=== PATIENT | male | born 2000 | race Caucasian/White ===

== ENCOUNTER 2019-05-13 06:54 | Emergency (ER) | payer OTHER ==
[~2019-05-13] VITALS: Ht 182.9 cm; Wt 70.9 kg
--- NOTE | 2019-05-13 08:56 | REP ---
SCROTAL ULTRASOUND: Real-time sonographic evaluation of the scrotum and contents are performed. Testicles are normal in size and echotexture, right testicle measuring 4.5 x 2.5 x 3.4 cm and left testicle 5.2 x 2.3 x 3.3 cm. There is no testicular mass or torsion. Blood flow is seen in each testicle with duplex Doppler evaluation. 6 mm cyst is seen in the left epididymis. There is a small left hydrocele. IMPRESSION: No evidence of testicular mass or torsion bilaterally. Electronically Signed by Johnny Peng MD 05/13/2019 12:34 P
[2019-05-13 08:59] LABS: CHLAMYDIA DNA AMPLIFICATION NEGATIVE (NEGATIVE); GC DNA AMPLIFICATION NEGATIVE (NEGATIVE)
[2019-05-13 09:41] VITALS: BP 114/68
== END 2019-05-13 09:45 | disposition home or self-care (01) ==
LOC: M ED 06:54
DX: N50.811 Right testicular pain (principal); F17.200 Nicotine dependence, unspecified, uncomplicated